=== PATIENT | male | born 1985 | race Caucasian/White ===

== ENCOUNTER 2022-01-30 02:34 | Emergency (ER) | payer MEDICAID, OTHER ==
[~2022-01-30] VITALS: Ht 182.9 cm; Wt 90.0 kg
[~2022-01-30 02:34] MED LIST: ALBU6.7H9 INH; GABA-533 PO; LINE600T14 MT; OXYC10TA48 PO; TRAM50TA PO; XAR15 MT
[2022-01-30 02:39] VITALS: BP 138/82
== END 2022-01-30 03:34 | disposition home or self-care (01) ==
LOC: ER 02:34
DX: R00.2 Palpitations (principal); F15.10 Other stimulant abuse, uncomplicated; M79.672 Pain in left foot; Z98.890 Other specified postprocedural states
CPT/HCPCS: 93005; 99283